=== PATIENT | female | born 1935 | race Caucasian/White ===

== ENCOUNTER → 2018-04-11 | Outpatient (CLI) | payer MEDICARE ==
[~2018-04-11] MED LIST: BIOT250012 PO; CALC-734 PO; CEPH500C24 PO; CHOL200025 PO; GLUC-396 PO; LEVO50TA86 PO; METO50TA19 PO; MV,C1TAB35 PO; OMEG500C7 PO; VITA-198 PO; WARF5TAB23 PO
== END ==
LOC: US 00:58
PROVIDERS: ATTEND Internal Medicine Clinical Cardiac Electrophysiology
DX: I50.1 Left ventricular failure, unspecified (principal); I34.8 Other nonrheumatic mitral valve disorders; I07.1 Rheumatic tricuspid insufficiency
CPT/HCPCS: 93306

== ENCOUNTER → 2018-04-21 | Outpatient (CLI) | payer MEDICARE ==
--- NOTE | 2018-04-21 16:43 | RADIOLOGY IMAGING REPORT ---
FACILITY: [facility] - [place] PATIENT NAME: HE SUTTON : [id number] MR: [id number] V: [id number] EXAM DATE: [id number] ORDERING PHYSICIAN: JOIE BENITEZ TECHNOLOGIST: Michelle Schneider PROCEDURE:BILATERAL DIGITAL SCREENING MAMMOGRAM WITH CAD ASSISTED INTERPRETATION & 3D TOMOSYNTHESIS COMPARISON:11/25/16, 04/22/16, 03/31/15 VIEWS OBTAINED: Bilateral 2D full field CC & MLO & corresponding 3D tomography INDICATIONS:screening/Asymptomatic TISSUE DENSITY: Scattered fibroglandular densities FINDINGS: There is no mammographic finding suspicious for malignancy. A Left pacemaker control unit partially obscures the Left axilla. DIAGNOSTIC CATEGORY 1--NEGATIVE. RECOMMENDATIONS: ROUTINE ANNULA BILATERAL MAMMOGRAM AND CLINICAL EVALUATION. IMPRESSION: BIRADS 1: Negative. Dictated by: Annalisa Alvarez M.D. on 04/21/2018 at 15:08 Transcribed by: VIVIEN on 04/21/2018 at 15:40 Approved by: Annalisa Alvarez M.D. on 04/21/2018 at 16:42 [facility]
== END ==
LOC: MAMO 04:19
PROVIDERS: ATTEND Nurse Practitioner Family
DX: Z12.31 Encounter for screening mammogram for malignant neoplasm of breast (principal)
CPT/HCPCS: 77063; 77067

== ENCOUNTER → 2018-12-22 | Outpatient (CLI) | payer MEDICARE ==
[2018-12-22 07:25] LABS: PLATELET COUNT, AUTOMATED 253 K/uL (150-450)
== END ==
LOC: LAB 07:13
PROVIDERS: ATTEND Nurse Practitioner Family
DX: R53.81 Other malaise (principal); E87.8 Other disorders of electrolyte and fluid balance, not elsewhere classified; E78.00 Pure hypercholesterolemia, unspecified
CPT/HCPCS: 36415; 82040; 82247; 82310; 82374; 82435; 82465; 82565; 82947; 83718; 84075; 84132; 84155; 84295; 84443; 84450; 84460; 84478; 84520; 85025

== ENCOUNTER → 2019-02-28 | Outpatient (CLI) | payer MEDICARE ==
--- NOTE | 2019-02-28 13:33 | RADIOLOGY IMAGING REPORT ---
FACILITY: [facility] - [place] PATIENT NAME: June Mitchell : 1935 MR: [id number] V: [id number] EXAM DATE: ORDERING PHYSICIAN: JOIE BENITEZ TECHNOLOGIST: Location: [facility] Patient: June Mitchell : 1935 Visit/Account:[id number] Date of Sevice: 02/28/2019 BONE DENSITY DEXA Scan Clinical history: Osteopenia. Comparison: DEXA scan from 04/22/2016. LUMBAR SPINE: The bone mineral density (BMD) measured from L1-L4 correlates with a Z-score 2.7 and a T-score of 0. 3 which is Normal as defined by the World Health Organization. The corresponding risk of fracture in the lumbar spine is Not increased compared with a young adult reference population. This value has decreased by -3.0 % since the prior study. More than 5% change is considered significant. HIP: Bone mineral density (BMD) measured in the Left total hip region correlates with a Z-score 1.9 and a T-score of - 0.7 which is low normal as defined by the World Health Organization. The corresponding risk of fracture in the hip is increased between 1-2 times compared with a [facility]. This value has decreased by -2.6 % since the prior study. More than 5% change is considered significant. Bone mineral density (BMD) measured in the Femoral Neck region measures 0.803 g/cm2. T score -1.7. Osteopenia. Fracture is increased between 3-4 times. IMPRESSION: 1. Lumbar spine: Normal. There has been decreased by -3.0% in the bone mineral density since the pr evious exam. 2. Left Total Hip: Low normal. There has been decreased by -2.6% in the bone mineral density since the previous exam. 3. Femoral Neck: Bone Mineral Density is 0.803 g/cm2. Osteopenia The next DEXA scan of this patient should include the following sites: L1-L4 and the left hip. FRAX? WHO Fracture Risk Assessment Tool link: <http://www.shef.ac.uk/FRAX/tool.jsp?locationValue=9> PLEASE NOTE: 1) The World Health Organization defines low BMD as follows: T-score Normal > -1 Osteopenia < -1 and > -2.5 Osteoporosis < -2.5 without fractures Established osteoporosis < -2.5 with fractures 2) In general, you may wish to consider: Diagnosis Treatment Follow-up DEXA Normal BMD Prevention 2-3 years Osteopenia Prevention/therapy 1-2 years Osteoporosis Therapy Yearly 3) Fracture risk estimated from the T-score is more accurate for vertebral fractures (often spontane ous) than for hip fractures. Report Dictated By: Ricky Lange MD at 02/28/2019 1:22 PM Report E-Signed By: Ricky Lange MD at 02/28/2019 1:24 PM WSN:[id number]
== END ==
LOC: RAD 04:07
PROVIDERS: ATTEND Nurse Practitioner Family
DX: Z78.0 Asymptomatic menopausal state (principal)
CPT/HCPCS: 77080